=== PATIENT | female | born 1990 | race Caucasian/White ===

== ENCOUNTER → 2025-10-16 | Outpatient (CLI) | payer MEDICAID, SELFPAY ==
[2025-10-15 08:59] LABS: Basophils # (Auto) 0.0 Thou/mm3 (0.0-0.2); Basophils % (Auto) 1 % (0-2.5); Eosinophils # (Auto) 0.1 Thou/mm3 (0.0-0.5); Eosinophils % (Auto) 2 % (0-10); Hematocrit 37.0 % (36.0-46.0); Hemoglobin 12.4 g/dL (12.0-16.0); Immature Granulocytes Auto 0.01 Thou/mm3 (0.00-0.00); Lymphocytes # (Auto) 1.9 Thou/mm3 (1.0-4.8); Lymphocytes % (Auto) 35 % (10-50); Mean Corpuscular HGB Conc 33.5 g/dl (31.0-37.0); Mean Corpuscular Hemoglobin 29.8 pg (25.0-35.0); Mean Corpuscular Volume 89 fL (80-100); Monocytes # (Auto) 0.3 Thou/mm3 (0.0-0.8); Monocytes % (Auto) 6 % (0-12); Neutrophils # (Auto) 3.1 Thou/mm3 (1.8-7.7); Neutrophils % (Auto) 57 % (37-80); Nucleated Red Blood Cell # 0.00 Thou/mm3 (0.00-0.00); Nucleated Red Blood Cell % 0 /100 WBC (0); Platelet Count 233 Thou/mm3 (140-440); RDW Standard Deviation 42.5 fL (36.4-46.3); Red Blood Count 4.16 Miln/mm3 (4.00-5.20); White Blood Count 5.4 Thou/mm3 (3.6-11.0)
[2025-10-15 09:13] LABS: INR 1.0 (0.9-1.3); Partial Thromboplastin Time 25.2 Seconds (22.0-36.0); Prothrombin Time 10.6 Seconds (9.0-12.2)
[2025-10-15 09:20] LABS: HCG,Qualitative Serum Negative
--- NOTE | 2025-10-16 09:30 | XR_ITS ---
Examination: Breast ultrasound, unilateral, right Date and time of exam: October 16, 2025, 1022 hours INDICATIONS: Outer right breast lump for 1 year, history cystic disease Technique: Real-time sanchez scale ultrasonographic imaging performed right breast including all 4 quadrants as well as nipple retroareolar and axillary region. Findings: 9:00 cyst 18 x 10 x 17 mm No solid nodules IMPRESSION: BI-RADS Category 2: Benign findings
--- NOTE | 2025-10-16 10:00 | XR_ITS ---
Examinations: Ultrasound-guided breast cyst aspiration, right breast 9:00 cyst Rectal sonography limited INDICATIONS: Palpable breast cyst in the 9 o'clock position right breast on ultrasound examination today Exam date and time: October 16, 2025, 1026 hours. Informed consent provided. Technique: A timeout was completed verifying correct patient, procedure, site, positioning, and special equipment if applicable Informed consent provided. The patient was placed in a supine position for the breast cyst aspiration Sonographic images of the breast were performed for localization of the breast cyst The patient's breast was prepped and draped in sterile fashion. Maximum sterile barrier technique, hand hygiene, ultrasound sterile technique 1% lidocaine administered for anesthesia. Utilizing ultrasonographic guidance successful cyst aspiration, 6 cc turbid fluid sent for culture and sensitivity The patient tolerated the procedure well and there were no complications. Impression: Successful ultrasound-guided percutaneous right breast cyst aspiration
== END | disposition home or self-care (01) ==
LOC: SDIM 09:05
PROVIDERS: Radiology Diagnostic Radiology; PCP Family Medicine
DX: N60.01 Solitary cyst of right breast (principal)
CPT/HCPCS: 19000; 36415; 76641; 76942; 84703; 85025; 85610; 85730; 87070; 87205